=== PATIENT | female | born 1975 | race Caucasian/White ===

== ENCOUNTER → 2016-08-18 | Outpatient (CLI) | payer BC ==
[~2016-08-18] MED LIST: ABILIFY5 MG PO; CLARITIN 1010 MG/TAB PO; DESYREL 50MG50 MG PO; FLONASE NASAL S16 GM NS; KLONOPIN 0.5MG0.5 MG PO; NO HOME MEDICATIONS; NORCO 325 MG-51 TAB PO; ZOLOFT 100MG100 MG PO
== END ==
LOC: BHSO 07:57
DX: F31.73 Bipolar disorder, in partial remission, most recent episode manic (principal)

== ENCOUNTER → 2016-10-31 | Outpatient (CLI) | payer BC | LOC: COL.RAD 12:18 | DX: M47.817 Spondylosis without myelopathy or radiculopathy, lumbosacral region (principal); R10.12 Left upper quadrant pain; R31.9 Hematuria, unspecified; M54.9 Dorsalgia, unspecified ==

== ENCOUNTER → 2016-11-16 | Outpatient (CLI) | payer BC | LOC: BHSO 07:55 | DX: F31.73 Bipolar disorder, in partial remission, most recent episode manic (principal) ==

== ENCOUNTER → 2017-04-24 | Outpatient (CLI) | payer BC | LOC: BHSO 07:55 | DX: F31.32 Bipolar disorder, current episode depressed, moderate (principal) | CPT/HCPCS: G0463 ==

== ENCOUNTER → 2017-06-06 | Outpatient (CLI) | payer BC | LOC: BHSO 08:00 | DX: F31.31 Bipolar disorder, current episode depressed, mild (principal) | CPT/HCPCS: G0463 ==

== ENCOUNTER → 2017-09-01 | Outpatient (CLI) | payer BC | LOC: BHSO 10:22 | DX: F31.76 Bipolar disorder, in full remission, most recent episode depressed (principal) | CPT/HCPCS: G0463 ==

== ENCOUNTER → 2018-05-16 | Outpatient (CLI) | payer BC | LOC: BHSO 08:39 | DX: F31.75 Bipolar disorder, in partial remission, most recent episode depressed (principal) | CPT/HCPCS: G0463 ==

== ENCOUNTER → 2018-11-14 | Outpatient (CLI) | payer BC | LOC: BHSO 14:16 | DX: F31.76 Bipolar disorder, in full remission, most recent episode depressed (principal) | CPT/HCPCS: G0463 ==

== ENCOUNTER → 2019-12-12 | Outpatient (CLI) | payer BC | LOC: BHSO 07:59 | DX: F31.74 Bipolar disorder, in full remission, most recent episode manic (principal) | CPT/HCPCS: G0463 ==

== ENCOUNTER → 2019-12-18 | Outpatient (CLI) | payer BC | LOC: MC.RAD 10:12 | DX: Z12.31 Encounter for screening mammogram for malignant neoplasm of breast (principal) ==

== ENCOUNTER 2021-08-13 18:22 | Emergency (ER) | payer BC ==
[~2021-08-13] VITALS: Ht 170.2 cm; Wt 95.9 kg
[2021-08-13 18:29] VITALS: TEMP 98.2
[2021-08-13] MEDS ORDERED: PERCOCET 325 MG1 TA2 PO (20:35)
[2021-08-13] MEDS ORDERED: NAPROSYN500 MG PO (20:35)
[2021-08-13] MEDS ORDERED: ROBAXIN 50500 MG/TAB PO (20:35)
[2021-08-13 20:48] VITALS: BP 137/78; PULSE 70
== END 2021-08-13 20:48 | disposition home or self-care (01) ==
LOC: COL.ER 18:22
DX: R07.89 Other chest pain (principal); M25.511 Pain in right shoulder; Z87.891 Personal history of nicotine dependence

== ENCOUNTER → 2022-05-16 | Outpatient (CLI) | payer BC ==
[~2022-05-16] MED LIST changes: +NAPROSYN500 MG PO; +PERCOCET 325 MG1 TA2 PO; +ROBAXIN 50500 MG/TAB PO
== END ==
LOC: COL.RAD 13:55
DX: G93.5 Compression of brain (principal); Q07.00 Arnold-Chiari syndrome without spina bifida or hydrocephalus